=== PATIENT | male | born 1960 | race Caucasian/White ===

== ENCOUNTER 2017-01-06 17:49 | Emergency (ER) | payer OTHER ==
--- NOTE | ~2017-01-06 | US115 ---
[facility] A Service of [facility] RADIOLOGY TEXT RESULTS PATIENT: KASEY HICKMAN LOCATION: [facility] : 60 UNIT #: [id number] AGE: [address]: Marguerite Gottlieb MD SEX: M ORDER DR: [id number] [facility] [address] [place], [place] [address] [id number] MR#: [id number] Acc #: [id number] NAME: KASEY HICKMAN : 1960 SEX: M STUDY DATE/TIME: 01/06/2017 19:27 UNIT: [facility] ROOM: STUDY DESCRIPTION: US Scrotum and Contents Attending Physician: Marguerite Gottlieb M.D. Ordering Physician: Ed Doctor [id number] [facility] Primary Care Physician: Laverne Castle MEDICAL IMAGING REPORT This report is preliminary unless electronic signature is present EXAM Scrotal ultrasound HISTORY 56-year-old male with right testicular pain and swelling x3 days. FINDINGS Real-time examination demonstrates testicles to be of normal size shape and echogenicity. No intratesticular mass lesion is identified. Normal testicular flow. There is a small right-sided hydrocele. The right epididymis appears mildly enlarged, could reflect early epididymitis. No significant hypervascularity of the right epididymis. Left epididymis unremarkable. No varicocele. IMPRESSION 1. Mild enlargement of the right epididymis and a small right hydrocele could reflect early epididymitis. 2. Testicles normal. Dictated by... Cintia Monae M.D. THIS IS AN ELECTRONICALLY VERIFIED REPORT Cintia Monae M.D. at 01/07/2017 5:03 PM [place] TD: 01/07/2017 08:03 JOB #: [id number] MEDICAL IMAGING REPORT COPY
[2017-01-06 18:11] LABS: URINE SOURCE CLEAN CATCH
[2017-01-06 18:17] LABS: URINE APPEARANCE CLEAR; URINE BILIRUBIN NEG (NEG); URINE BLOOD NEG (NEG); URINE COLOR YELLOW; URINE GLUCOSE NEG (NEG); URINE KETONE NEG (NEG); URINE LEUKOCYTE ESTERASE NEG (NEG); URINE NITRATE NEG (NEG); URINE PROTEIN NEG (NEG); URINE SPECIFIC GRAVITY 1.025 (1.003-1.035); URINE UROBILINOGEN 0.2 MG/DL (NEG)
[2017-01-06 18:24] LABS: CULTURE INDICATED? NO
[2017-01-06 18:29] LABS: BASOPHIL% 0.5 % (0-2.5); EOSINOPHIL# 0.1 X10e3 (0-0.7); EOSINOPHIL% 1.8 % (0.0-7.0); HEMATOCRIT 38.6 % (38.0-50.0); HEMOGLOBIN 12.8 gm/dL (13.0-16.0); LYMPHOCYTE# 1.2 X10e3 (1.0-3.5); LYMPHOCYTE% 15.2 % (17.0-45.0); MEAN CELL VOLUME 90.8 FL (83-96); MEAN CORPUSCULAR HEMOGLOBIN 30.2 PG (28-34); MEAN CORPUSCULAR HGB CONC 33.3 g/dL (30-36); MEAN PLATELET VOLUME 7.8 FL (6.5-11.5); MONOCYTE# 0.7 X10e3 (0-1.0); MONOCYTE% 8.7 % (3.0-12.0); NEUTROPHIL# 5.7 X10e3 (1.5-7.1); NEUTROPHIL% 73.8 % (40-75); PLATELET COUNT 247 X10e3 (140-420); RED BLOOD COUNT 4.25 X10e (3.90-5.60); RED CELL DISTRIBUTION WIDTH 13.1 % (11.0-15.5); WHITE BLOOD COUNT 7.8 X10e3 (4.0-10.5)
[2017-01-06 18:32] LABS: DIFF IND NO
[2017-01-06 19:08] LABS: ALKALINE PHOSPHATASE 49 U/L (32-92); ALT (SGPT) 19 U/L (10-40); AST (SGOT) 22 U/L (10-42); BILIRUBIN,TOTAL 0.8 mg/dL (0.2-2.0); BLOOD UREA NITROGEN 24 mg/dL (9-23); CALCIUM SERUM 9.9 mg/dL (8.4-10.2); CARBON DIOXIDE 27 mmol/L (22-31); CHLORIDE 104 mmol/L (100-111); GLOM FILT RATE Estimated ABOVE60 mL/min (>60); GLUCOSE FASTING 91 mg/dL (70-110); POTASSIUM 3.6 mmol/L (3.5-5.1); PROTEIN TOTAL SERUM 6.8 g/dL (6.0-8.3); SODIUM 140 mmol/L (135-145)
[2017-01-10 20:34] LABS: CHLAMYDIA TRACH Not Detected (Not Detected); N GONOR Not Detected (Not Detected)
== END 2017-01-06 22:20 | disposition home or self-care (01) ==
LOC: CED 17:49
PROVIDERS: Nurse Practitioner
DX: N45.1 Epididymitis (principal); I10 Essential (primary) hypertension; Z88.5 Allergy status to narcotic agent
CPT/HCPCS: 36415; 76870; 80053; 81003; 85025; 87491; 87591; 93976; 99284

== ENCOUNTER → 2017-01-17 | Outpatient (CLI) | payer OTHER ==
--- NOTE | ~2017-01-17 | XA230 ---
[facility] A Service of [facility] & [facility] RADIOLOGY TEXT RESULTS PATIENT: KASEY JORDAN [facility] 60 UNIT #: [id number] AGE: [address]: SONIA SLADE APRN SEX: M ORDER DR: [id number] [facility] [address] [place], [place] [address] [id number] O MR#: [id number] Acc #: [id number] NAME: KASEY JORDAN : 1960 SEX: M STUDY DATE/TIME: 01/17/2017 11:49 UNIT: [facility] ROOM: STUDY DESCRIPTION: XA FNA Attending Physician: Sonia Slade A.P.R.N. Ordering Physician: Sonia Slade A.P.R.N. Primary Care Physician: Sonia Slade A.P.R.N. MEDICAL IMAGING REPORT This report is preliminary unless electronic signature is present EXAM Ultrasound-guided left thyroid FNA INDICATION Mr. Jordan is a 56-year-old gentleman who had a CT scan on December 10, 2016 which showed multiple thyroid nodules. He subsequently underwent a thyroid ultrasound which also showed additional thyroid nodules with the dominant nodule seen within the left lobe of the thyroid gland. He has been referred for FNA. PROCEDURE The risks, benefits, and alternatives to the procedure were explained to the patient, and signed, informed consent was obtained. He was placed supine on the angiographic table and was prepped and draped in the usual sterile fashion. Time-out was performed as per protocol. Preliminary ultrasound of the left lobe of the thyroid gland was performed which again demonstrated the predominantly solid nodule within the left lobe of the thyroid gland. Skin and subcutaneous tissues were anesthetized with buffered Lidocaine. A total of 3 separate passes were made into the lesion under direct sterile sonographic guidance. Specimens were given to a mri technologist who confirmed an adequate specimen had been obtained. At this point, the procedure was terminated. Patient tolerated the procedure well and there were no immediate complications. IMPRESSION Technically successful ultrasound-guided left thyroid FNA as noted above. Ultrasound was used during the procedure and permanent images were saved. Dictated by... Brandi Desai M.D. THIS IS AN ELECTRONICALLY VERIFIED REPORT [facility] A Service of [facility] RADIOLOGY TEXT RESULTS PATIENT: KASEY JORDAN LOCATION: [facility] : 60 UNIT #: [id number] AGE: [address]: SONIA SLADE APRN SEX: M ORDER DR: Brandi Desai M.D. at 01/18/2017 4:39 PM AFF/kedar TD: 01/18/2017 11:03 JOB #: [id number] MEDICAL IMAGING REPORT COPY
== END | disposition home or self-care (01) ==
LOC: CIVR 10:41
PROC: 0GBG3ZX Excision of Left Thyroid Gland Lobe, Percutaneous Approach, Diagnostic (ICD-10-PCS; principal; 2017-01-17)
DX: E04.1 Nontoxic single thyroid nodule (principal)
CPT/HCPCS: 76942; 88173

== ENCOUNTER 2017-02-03 18:39 | Emergency (ER) | payer OTHER ==
--- NOTE | ~2017-02-03 | EKG ---
PATIENT: KASEY HICKMAN UNIT #: [id number] Ventricular Rate: 49 BPM Atrial Rate: 49 BPM P-R Interval: 238 ms QRS Duration: 98 ms Q-T Interval: 442 ms QTC Calculation(Bezet): 399 ms P Harmon: 55 degrees Calculated R Harmon: 34 degrees Calculated T Harmon: 24 degrees Diagnosis Line: Sinus bradycardia with 1st degree A-V block Diagnosis Line: Otherwise normal ECG Diagnosis Line: No previous ECGs available Diagnosis Line: Confirmed by SUSIE FELIPE MD ([id number]) on 02/04/2017 Diagnosis Line: 10:59:38 PM INTERPRETING MD: MATTEO MANDUJANO
[2017-02-03 17:19] LABS: URINE SOURCE CLEAN CATCH
[2017-02-03 17:27] LABS: BASOPHIL% 0.7 % (0-2.5); EOSINOPHIL# 0.2 X10e3 (0-0.7); EOSINOPHIL% 2.9 % (0.0-7.0); HEMATOCRIT 39.1 % (38.0-50.0); LYMPHOCYTE# 1.2 X10e3 (1.0-3.5); LYMPHOCYTE% 18.3 % (17.0-45.0); MEAN CELL VOLUME 90.8 FL (83-96); MEAN CORPUSCULAR HEMOGLOBIN 30.1 PG (28-34); MEAN CORPUSCULAR HGB CONC 33.2 g/dL (30-36); MEAN PLATELET VOLUME 7.1 FL (6.5-11.5); MONOCYTE# 0.7 X10e3 (0-1.0); MONOCYTE% 9.9 % (3.0-12.0); NEUTROPHIL# 4.7 X10e3 (1.5-7.1); NEUTROPHIL% 68.2 % (40-75); PLATELET COUNT 246 X10e3 (140-420); RED BLOOD COUNT 4.31 X10e (3.90-5.60); RED CELL DISTRIBUTION WIDTH 12.9 % (11.0-15.5); WHITE BLOOD COUNT 6.8 X10e3 (4.0-10.5)
[2017-02-03 17:29] LABS: POC - CKMB 2.3 ng/mL (0.0-7.9); POC - TROPONIN <0.05 ng/mL (<=0.05)
[2017-02-03 17:29] LABS: DIFF IND NO; URINE APPEARANCE CLEAR; URINE BILIRUBIN NEG (NEG); URINE BLOOD NEG (NEG); URINE COLOR YELLOW; URINE GLUCOSE NEG (NEG); URINE KETONE NEG (NEG); URINE LEUKOCYTE ESTERASE NEG (NEG); URINE NITRATE NEG (NEG); URINE PROTEIN NEG (NEG); URINE SPECIFIC GRAVITY 1.022 (1.003-1.035)
[2017-02-03 17:31] LABS: CULTURE INDICATED? NO
[2017-02-03 17:50] LABS: ALBUMIN SERUM 4.2 g/dL (3.5-5.0); BILIRUBIN, DIRECT 0.3 mg/dL (0.0-0.2); BILIRUBIN,TOTAL 1.3 mg/dL (0.2-2.0); CALCIUM SERUM 9.7 mg/dL (8.4-10.2); GLOM FILT RATE Estimated 83.8 mL/min (>60); POTASSIUM 3.9 mmol/L (3.5-5.1); PROTEIN TOTAL SERUM 7.3 g/dL (6.0-8.3)
== END 2017-02-03 19:55 | disposition home or self-care (01) ==
LOC: CED 18:39
PROVIDERS: Emergency Medicine
DX: R53.81 Other malaise (principal); R53.83 Other fatigue; I10 Essential (primary) hypertension; G47.00 Insomnia, unspecified
CPT/HCPCS: 36415; 80048; 80076; 81003; 82553; 82947; 83735; 84443; 84484; 85025; 93005; 99283

== ENCOUNTER → 2017-05-24 | Outpatient (CLI) | payer OTHER ==
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
== END | disposition home or self-care (01) ==
LOC: SRAD 13:38
DX: M25.551 Pain in right hip (principal); M25.552 Pain in left hip; M16.11 Unilateral primary osteoarthritis, right hip; M43.17 Spondylolisthesis, lumbosacral region; M47.896 Other spondylosis, lumbar region; M47.897 Other spondylosis, lumbosacral region
CPT/HCPCS: 72170